=== PATIENT | male | born 1990 | race African-American/Black ===

== ENCOUNTER 2016-07-04 13:32 | Emergency (ER) | payer SELFPAY ==
[~2016-07-04] VITALS: Ht 172.7 cm; Wt 79.0 kg
[~2016-07-04 13:32] MED LIST: NEXIUM20 MG PO; NO MEDS; ZITHROMAX250 MG OR
[2016-07-04] MEDS ORDERED: AMOXICILLIN500 MG PO (15:18)
[2016-07-04] MEDS ORDERED: ULTRAM50 M1 PO (15:18)
[2016-07-04 15:19] VITALS: BP 149/83
[2016-07-05] MEDS ORDERED: LORTAB 10-325 M1 TAB PO (14:47)
== END 2016-07-04 15:27 | disposition home or self-care (01) | DRG 605 ==
LOC: ED 13:32
PROC: 0HQNXZZ Repair Left Foot Skin, External Approach (ICD-10-PCS; principal; 2016-07-04)
PROC: 0HQLXZZ Repair Left Lower Leg Skin, External Approach (ICD-10-PCS; 2016-07-04)
DX: S81.812A Laceration without foreign body, left lower leg, initial encounter (principal); S91.312A Laceration without foreign body, left foot, initial encounter; W31.2XXA Contact with powered woodworking and forming machines, initial encounter; Y93.89 Activity, other specified; Y92.009 Unspecified place in unspecified non-institutional (private) residence as the place of occurrence of the external cause

== ENCOUNTER 2016-07-05 14:18 | Emergency (ER) | payer SELFPAY ==
[~2016-07-05] VITALS: Ht 172.7 cm; Wt 80.0 kg
[~2016-07-05 14:18] MED LIST changes: +AMOXICILLIN500 MG PO; +ULTRAM50 M1 PO
[2016-07-05] MEDS ORDERED: LORTAB 10-325 M1 TAB PO (14:47)
[2016-07-05 15:05] VITALS: BP 144/79
== END 2016-07-05 15:05 | disposition home or self-care (01) | DRG 950 ==
LOC: ED 14:18
DX: S81.812D Laceration without foreign body, left lower leg, subsequent encounter (principal); R22.42 Localized swelling, mass and lump, left lower limb; S91.312D Laceration without foreign body, left foot, subsequent encounter

== ENCOUNTER 2016-07-09 16:06 | Emergency (ER) | payer SELFPAY ==
[~2016-07-09] VITALS: Ht 172.7 cm; Wt 80.0 kg
[~2016-07-09 16:06] MED LIST changes: +LORTAB 10-325 M1 TAB PO
[2016-07-09 16:36] VITALS: BP 138/79
== END 2016-07-09 16:50 | disposition home or self-care (01) | DRG 950 ==
LOC: ED 16:06
DX: S91.302D Unspecified open wound, left foot, subsequent encounter (principal); X58.XXXD Exposure to other specified factors, subsequent encounter